=== PATIENT | male | born 1985 | race Two or more races ===

== ENCOUNTER 2017-02-16 07:52 | Emergency (ER) | payer OTHER ==
[2017-02-16 08:24] VITALS: BP 115/66; PULSE 66; TEMP 89.4; BMI 26.7
[2017-02-16] MEDS ORDERED: ACETAMINOPHEN 325 MG TABLET (FP) PO ONE (09:00)
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
== END 2017-02-16 10:44 | disposition home or self-care (01) ==
LOC: JER 07:52
DX: S13.4XXA Sprain of ligaments of cervical spine, initial encounter (principal); S39.012A Strain of muscle, fascia and tendon of lower back, initial encounter; G44.319 Acute post-traumatic headache, not intractable; V43.52XA Car driver injured in collision with other type car in traffic accident, initial encounter; Y92.412 Parkway as the place of occurrence of the external cause; Y93.89 Activity, other specified; Y99.8 Other external cause status
CPT/HCPCS: 72100-TC; 99282-25